=== PATIENT | male | born 1955 | race Caucasian/White ===

== ENCOUNTER → 2020-10-01 | Outpatient (CLI) | payer MEDICARE | END | disposition home or self-care (01) | LOC: ROC 09-25 10:58 | PROVIDERS: ATTEND Radiology Radiation Oncology | DX: C61 Malignant neoplasm of prostate (principal); C79.51 Secondary malignant neoplasm of bone | CPT/HCPCS: G0463 ==

== ENCOUNTER 2020-11-27 12:02 | Outpatient (CLI) | payer MEDICARE ==
[2020-11-27] MEDS ORDERED: MIDAZOLAM 1 MG/ML, 5ML ONE ×2 (12:51)
[2020-11-27] MEDS ORDERED: FENTANYL PF 100 MCG/2ML ONE (12:51)
[2020-11-27] MEDS ORDERED: GADOTERATE 10 MMOL/20 ML VIAL ONE (14:26)
== END 2020-11-27 23:59 | disposition home or self-care (01) ==
LOC: RAD 12:02
PROVIDERS: ATTEND Internal Medicine
DX: C61 Malignant neoplasm of prostate (principal); C41.2 Malignant neoplasm of vertebral column; M48.061 Spinal stenosis, lumbar region without neurogenic claudication; M51.36 Other intervertebral disc degeneration, lumbar region; M80.88XA Other osteoporosis with current pathological fracture, vertebra(e), initial encounter for fracture; M25.78 Osteophyte, vertebrae; I10 Essential (primary) hypertension; G47.30 Sleep apnea, unspecified; Z79.899 Other long term (current) drug therapy; Z90.49 Acquired absence of other specified parts of digestive tract; Z98.890 Other specified postprocedural states
CPT/HCPCS: 72157; 72158; 99156; 99157; A9575; J2250; J3010

== ENCOUNTER 2020-12-21 07:31 | Outpatient (CLI) | payer MEDICARE | END 2020-12-21 23:59 | disposition home or self-care (01) | LOC: ROC 07:31 | PROVIDERS: ATTEND Radiology Radiation Oncology | DX: Z08 Encounter for follow-up examination after completed treatment for malignant neoplasm (principal); Z85.46 Personal history of malignant neoplasm of prostate; Z85.830 Personal history of malignant neoplasm of bone; I10 Essential (primary) hypertension; Z79.899 Other long term (current) drug therapy; Z98.890 Other specified postprocedural states | CPT/HCPCS: G2012; G2251 ==

== ENCOUNTER 2021-05-23 06:12 | Day surgery (SDC) | payer MEDICARE ==
[~2021-05-23] VITALS: Ht 188 cm; Wt 107.9 kg
[2021-05-23 06:57] VITALS: BP 111/84
[2021-05-23] MEDS ORDERED: SODIUM CHLORIDE 0.9% 1,000 ML IV SCH (07:00)
[2021-05-23] MEDS ORDERED: FENTANYL PF 100 MCG/2ML ONE (08:19)
[2021-05-23] MEDS ORDERED: MIDAZOLAM 1 MG/ML, 5ML ONE (08:19)
[2021-05-23] MEDS ORDERED: FLUMAZENIL 0.1 MG/1 ML, 5ML ONE (08:20)
[2021-05-23] MEDS ORDERED: NALOXONE 1 MG/ML, 2ML ONE (08:20)
== END 2021-05-23 11:40 | disposition home or self-care (01) ==
LOC: OUT 06:12
PROVIDERS: ATTEND Internal Medicine
DX: C61 Malignant neoplasm of prostate (principal); C79.51 Secondary malignant neoplasm of bone; I10 Essential (primary) hypertension; M81.0 Age-related osteoporosis without current pathological fracture; H40.9 Unspecified glaucoma; Z98.890 Other specified postprocedural states; Z90.49 Acquired absence of other specified parts of digestive tract; Z80.1 Family history of malignant neoplasm of trachea, bronchus and lung
CPT/HCPCS: 38222; 77012; 88307; 88311; 99156; 99157; J2250; J3010; J7030; J2310

== ENCOUNTER 2021-05-31 08:30 | Outpatient (CLI) | payer MEDICARE | END 2021-05-31 23:59 | disposition home or self-care (01) | LOC: ROC 08:30 | PROVIDERS: ATTEND Radiology Radiation Oncology | DX: Z08 Encounter for follow-up examination after completed treatment for malignant neoplasm (principal); Z85.46 Personal history of malignant neoplasm of prostate; I10 Essential (primary) hypertension; M81.0 Age-related osteoporosis without current pathological fracture; Z98.890 Other specified postprocedural states | CPT/HCPCS: 99212; G0463; G2251 ==